=== PATIENT | female | born 1940 | race Caucasian/White ===

== ENCOUNTER 2020-05-27 18:35 | Outpatient (CLI) | payer MEDICARE, SELFPAY ==
[2020-05-27 18:49] LABS: Add Urine Microscopic? NO
[2020-05-27 18:55] LABS: Basophils % 0.3 %; Eosinophils % 0.1 %; Hematocrit 39.4 % (37.0-47.0); Hemoglobin 12.3 g/dL (11.5-15.3); Lymphocytes # 0.9 10^3/uL (0.8-4.8); Lymphocytes % 6.4 %; Mean Corpuscular HGB Conc 31.2 g/dL (30.0-36.0); Mean Corpuscular Hemoglobin 30.8 pg (28.0-34.0); Mean Corpuscular Volume 98.5 fL (81-99); Mean Platelet Volume 10.4 fL (7.4-10.4); Monocytes # 0.8 10^3/uL (0.2-0.9); Monocytes % 5.5 %; Neutrophils # 12.01 10^3/uL (1.8-7.7); Neutrophils % 87.3 %; Nucleated Red Blood Cells % 0 %; Platelet Count 267 10^3/cmm (130-400); Red Cell Distribution Width 14.3 % (12.1-15.1); White Blood Count 13.8 10^3/uL (4.0-10.0)
[2020-05-27 19:12] LABS: Ammonia 27 umol/L (11-51)
[2020-05-27 19:15] LABS: Alanine Aminotransferase 18 U/L (0-33); Albumin Level 3.5 g/dL (3.5-5.2); Alkaline Phosphatase 84 IU/L (35-105); Aspartate Amino Transferase 34 U/L (0-32); Blood Urea Nitrogen 13 mg/dL (8-23); Calcium 8.5 mg/dL (8.5-10.5); Carbon Dioxide 21 mmol/L (22-29); Chloride 111 mmol/L (98-107); Glucose 126 mg/dL (65-115); Osmolality Calculated 302 mOsm/kg (285-295); Sodium 145 mmol/L (136-145); Total Bilirubin 0.3 mg/dL (0.15-1.2); Total Protein 5.5 g/dL (6.6-8.7)
[2020-05-27 19:40] LABS: Bilirubin Urine 1+ (Negative); Blood Urine Neg (Negative); Glucose Urine UA Norm (Normal); Ketones Urine 1+ (Negative); Leukocyte Esterase Urine Negative (Negative); Nitrate Urine Negative (Negative); Protein Urine Neg (Negative); Urine Appearance Clear (CLEAR); Urine Color Yellow (Yellow); Urobilinogen Urine 4 mg/dL (Negative)
== END 2020-05-27 18:36 | disposition home or self-care (01) ==
LOC: LAB 18:41
PROVIDERS: PCP Internal Medicine; Visit Provider Internal Medicine
DX: D72.829 Elevated white blood cell count, unspecified (principal)
CPT/HCPCS: 80053; 81003; 82140; 85025

== ENCOUNTER 2021-03-01 13:47 | Outpatient (CLI) | payer MEDICARE, SELFPAY ==
[2021-03-01 14:12] LABS: Basophils # 0.1 10^3/uL (0.0-0.1); Basophils % 0.7 %; Eosinophils % 0.4 %; Hematocrit 37.2 % (37.0-47.0); Hemoglobin 11.9 g/dL (11.5-15.3); Lymphocytes # 1.5 10^3/uL (0.8-4.8); Lymphocytes % 17.3 %; Mean Corpuscular Hemoglobin 30.3 pg (28.0-34.0); Mean Corpuscular Volume 94.7 fl (81-99); Mean Platelet Volume 9.3 fL (7.4-10.4); Monocytes # 0.8 10^3/uL (0.2-0.9); Monocytes % 9.4 %; Neutrophils # 6.11 10^3/uL (1.8-7.7); Neutrophils % 71.6 %; Nucleated Red Blood Cells % 0 %; Platelet Count 295 10^3/cmm (130-400); Red Blood Count 3.93 10^6/uL (4.1-5.3); Red Cell Distribution Width 15.8 % (12.1-15.1); White Blood Count 8.5 10^3/uL (4.0-10.0)
[2021-03-01 15:02] LABS: Alanine Aminotransferase 11 U/L (0-33); Albumin Level 2.3 g/dL (3.5-5.2); Alkaline Phosphatase 57 IU/L (35-105); Anion Gap 12.8 (5-19); Aspartate Amino Transferase 22 U/L (0-32); Blood Urea Nitrogen 17 mg/dL (8-23); Calcium 7.8 mg/dL (8.5-10.5); Carbon Dioxide 23 mmol/L (22-29); Chloride 107 mmol/L (98-107); Globulin 1.8 g/dL (1.3-4.6); Glucose 66 mg/dL (65-115); NT Pro B Type Natriuretic Pept 329 pg/mL (0-450); Osmolality Calculated 288 mOsm/kg (285-295); Potassium 3.8 mmol/L (3.5-5.1); Sodium 139 mmol/L (136-145); Total Bilirubin 0.2 mg/dL (0.15-1.2); Total Protein 4.1 g/dL (6.6-8.7); Valproic Acid Level 45.2 ug/mL (50-100)
== END 2021-03-01 13:48 | disposition home or self-care (01) ==
LOC: LAB 13:50
PROVIDERS: PCP Internal Medicine; Visit Provider Family Medicine
DX: Z01.89 Encounter for other specified special examinations (principal)
CPT/HCPCS: 80053; 80164; 83880; 85025